=== PATIENT | female | born 1980 | race Caucasian/White ===

== ENCOUNTER 2018-01-06 11:11 | Emergency (ER) | payer OTHER ==
[2018-01-06] MEDS ORDERED: SODIUM CHLORIDE 0.9% 1,000 ML IV STA (11:32)
[2018-01-06] MEDS ORDERED: DIAZEPAM 5 MG/ML 2 ML INJ IVP STA (11:33)
--- NOTE | 2018-01-06 11:53 | ED ---
General Adult HPI - General Chief complaint: Weakness Stated complaint: Dizziness Time Seen by Provider: 01/06/18 11:22 Source: patient, RN notes reviewed Mode of arrival: ambulatory Limitations: no limitations - History of Present Illness Initial comments: This a 37-year-old female presents emergency Department with complaints of extremity paresthesias, feeling lightheaded. She states she woke up his morning noticed her right hand was numb. Patient states now that she's been up all over her extremities feel tingly and numb. She states she does not have a history of anxiety. She denies chest pain, shortness breath, focal weakness. She states that she felt lightheaded earlier but that has resolved. She denies headache, blurred vision, nausea this time. She denies any chance she has no extremity swelling denies any change in bowel habits denies any dysuria no hematuria. She states she only takes current probiotics and occasional Advil. Significant other in the room states that she is acting appropriate there is no confusion. Patient denies head injury. - Related Data Home Medications Medication Instructions Recorded Confirmed Ibuprofen [Advil] 600 - 800 mg PO Q6HR PRN 07/08/16 01/06/18 L.acidoph,Paracasei, B.lactis 1 cap PO HS 07/08/16 01/06/18 [Probiotic] Allergies Allergy/AdvReac Type Severity Reaction Status Date / Time No Known Allergies Allergy Verified 01/06/18 11:41 Review of Systems ROS Statement: Those systems with pertinent positive or pertinent negative responses have been documented in the HPI. ROS Other: All systems not noted in ROS Statement are negative. Past Medical History Past Medical History: No Reported History History of Any Multi-Drug Resistant Organisms: None Reported Past Surgical History: Tubal Ligation Additional Past Surgical History / Comment(s): leep proceedure Past Psychological History: No Psychological Hx Reported Smoking Status: Current every day smoker Past Alcohol Use History: Occasional Past Drug Use History: Marijuana General Exam Limitations: no limitations General appearance: alert, in no apparent distress Head exam: Present: atraumatic, normocephalic, normal inspection Eye exam: Present: normal appearance, PERRL, EOMI. Absent: scleral icterus, conjunctival injection, periorbital swelling ENT exam: Present: normal exam, normal oropharynx, mucous membranes moist, TM's normal bilaterally, normal external ear exam Neck exam: Present: normal inspection, full ROM. Absent: tenderness, meningismus, lymphadenopathy Respiratory exam: Present: normal lung sounds bilaterally. Absent: respiratory distress, wheezes, rales, rhonchi, stridor Cardiovascular Exam: Present: regular rate, normal rhythm, normal heart sounds. Absent: systolic murmur, diastolic murmur, rubs, gallop, clicks GI/Abdominal exam: Present: soft, normal bowel sounds. Absent: distended, tenderness, guarding, rebound, rigid Extremities exam: Present: normal inspection, full ROM, normal capillary refill , other (Extremity strength equal bilaterally of upper and lower extremities, pulses equal). Absent: tenderness, pedal edema, joint swelling, calf tenderness Back exam: Present: full ROM. Absent: tenderness, CVA tenderness (R), CVA tenderness (L) Neurological exam: Present: alert, oriented X3, CN II-XII intact, reflexes normal, other (Finger to nose intact bilaterally without shooting.). Absent: motor sensory deficit Skin exam: Present: warm, dry, intact, normal color. Absent: rash Course Vital Signs 01/06/18 01/06/18 11:14 13:15 Temperature 97.8 F Pulse Rate 82 77 Respiratory 16 18 Rate Blood Pressure 131/91 125/86 O2 Sat by Pulse 99 99 Oximetry EKG Findings - EKG Comments: EKG Findings:: EKG performed at 11.46 sinus rhythm with rate 87. pr 150 QRS 86 QT/QTC 382/459 Medical Decision Making - Medical Decision Making 37-year-old female presented for extremity paresthesias. Patient has a normal neuro exam there is no focal weakness. Patient states symptoms are slightly better after Valium. Patient's EKG, CT of the brain, lab work reviewed there is no acute abnormality. Patient repeat neuro exam which was normal. NIH 0 GCS 15. Patient will be discharged at this time return parameters were discussed. Patient and family questions were all answered. - Lab Data Result diagrams: 01/06/18 11:50 01/06/18 11:50 Lab Results 01/06/18 01/06/18 01/06/18 Range/Units 11:40 11:50 11:50 WBC 8.0 (3.8-10.6) k/uL RBC 4.21 (3.80-5.40) m/uL Hgb 14.1 (11.4-16.0) gm/dL Hct 41.5 (34.0-46.0) % MCV 98.5 (80.0-100.0) fL MCH 33.5 (25.0-35.0) pg MCHC 34.0 (31.0-37.0) g/dL RDW 12.2 (11.5-15.5) % Plt Count 265 (150-450) k/uL Neutrophils % 72 % Lymphocytes % 21 % Monocytes % 4 % Eosinophils % 2 % Basophils % 1 % Neutrophils # 5.7 (1.3-7.7) k/uL Lymphocytes # 1.7 (1.0-4.8) k/uL Monocytes # 0.3 (0-1.0) k/uL Eosinophils # 0.1 (0-0.7) k/uL Basophils # 0.1 (0-0.2) k/uL Sodium 142 (137-145) mmol/L Potassium 4.2 (3.5-5.1) mmol/L Chloride 108 H (98-107) mmol/L Carbon Dioxide 25 (22-30) mmol/L Anion Gap 9 mmol/L BUN 12 (7-17) mg/dL Creatinine 0.63 (0.52-1.04) mg/dL Est GFR (CKD-EPI)AfAm >90 (>60 ml/min/1.73 sqM) Est GFR (CKD-EPI)NonAf >90 (>60 ml/min/1.73 sqM) Glucose 122 H (74-99) mg/dL Calcium 9.3 (8.4-10.2) mg/dL Magnesium 2.1 (1.6-2.3) mg/dL Total Bilirubin 0.4 (0.2-1.3) mg/dL AST 26 (14-36) U/L ALT 26 (9-52) U/L Alkaline Phosphatase 40 (38-126) U/L Troponin I (0.000-0.034) ng/mL Total Protein 6.8 (6.3-8.2) g/dL Albumin 4.2 (3.5-5.0) g/dL Urine Color Light Yellow Urine Appearance Clear (Clear) Urine pH 5.0 (5.0-8.0) Ur Specific [place] 1.004 (1.001-1.035) Urine Protein Negative (Negative) Urine Glucose (UA) Negative (Negative) Urine Ketones Negative (Negative) Urine Blood Negative (Negative) Urine Nitrite Negative (Negative) Urine Bilirubin Negative (Negative) Urine Urobilinogen <2.0 (<2.0) mg/dL Ur Leukocyte Esterase Negative (Negative) 01/06/18 Range/Units 11:50 WBC (3.8-10.6) k/uL RBC (3.80-5.40) m/uL Hgb (11.4-16.0) gm/dL Hct (34.0-46.0) % MCV (80.0-100.0) fL MCH (25.0-35.0) pg MCHC (31.0-37.0) g/dL RDW (11.5-15.5) % Plt Count (150-450) k/uL Neutrophils % % Lymphocytes % % Monocytes % % Eosinophils % % Basophils % % Neutrophils # (1.3-7.7) k/uL Lymphocytes # (1.0-4.8) k/uL Monocytes # (0-1.0) k/uL Eosinophils # (0-0.7) k/uL Basophils # (0-0.2) k/uL Sodium (137-145) mmol/L Potassium (3.5-5.1) mmol/L Chloride (98-107) mmol/L Carbon Dioxide (22-30) mmol/L Anion Gap mmol/L BUN (7-17) mg/dL Creatinine (0.52-1.04) mg/dL Est GFR (CKD-EPI)AfAm (>60 ml/min/1.73 sqM) Est GFR (CKD-EPI)NonAf (>60 ml/min/1.73 sqM) Glucose (74-99) mg/dL Calcium (8.4-10.2) mg/dL Magnesium (1.6-2.3) mg/dL Total Bilirubin (0.2-1.3) mg/dL AST (14-36) U/L ALT (9-52) U/L Alkaline Phosphatase (38-126) U/L Troponin I <0.012 (0.000-0.034) ng/mL Total Protein (6.3-8.2) g/dL Albumin (3.5-5.0) g/dL Urine Color Urine Appearance (Clear) Urine pH (5.0-8.0) Ur Specific [place] (1.001-1.035) Urine Protein (Negative) Urine Glucose (UA) (Negative) Urine Ketones (Negative) Urine Blood (Negative) Urine Nitrite (Negative) Urine Bilirubin (Negative) Urine Urobilinogen (<2.0) mg/dL Ur Leukocyte Esterase (Negative) Disposition Clinical Impression: Paresthesia of both hands, Paresthesia of both feet Disposition: HOME SELF-CARE Condition: Stable Instructions: Paresthesia (ED) Additional Instructions: Please return to the Emergency Department if symptoms worsen or any other concerns. Referrals: Ayleen Benoit MD [Primary Care Provider] - 1-2 days Time of Disposition: 14:16
[2018-01-06 12:11] LABS: Basophils # (A) 0.1 k/uL (0-0.2); Basophils % (A) 1 %; Eosinophils # (A) 0.1 k/uL (0-0.7); Eosinophils % (A) 2 %; HCT 41.5 % (34.0-46.0); HGB 14.1 gm/dL (11.4-16.0); Lymphocytes # (A) 1.7 k/uL (1.0-4.8); Lymphocytes % (A) 21 %; MCH 33.5 pg (25.0-35.0); MCV 98.5 fL (80.0-100.0); Mean Platelet Volume 7.1; Monocytes # (A) 0.3 k/uL (0-1.0); Monocytes % (A) 4 %; Neutrophils # (A) 5.7 k/uL (1.3-7.7); Neutrophils % (A) 72 %; Platelet Count 265 k/uL (150-450); RBC 4.21 m/uL (3.80-5.40); RDW 12.2 % (11.5-15.5)
[2018-01-06 12:19] LABS: Appearance,Urine Clear (Clear); Bilirubin,Urine Negative (Negative); Blood,Urine Negative (Negative); Color,Urine Light Yellow; Glucose,Urine (UA) Negative (Negative); Ketones,Urine Negative (Negative); Leukocyte Esterase,Urine Negative (Negative); Nitrite,Urine Negative (Negative); Protein,Urine Negative (Negative); Specific Gravity,Urine 1.004 (1.001-1.035); Urobilinogen,Urine <2.0 mg/dL (<2.0)
[2018-01-06 12:32] LABS: ALT 26 U/L (9-52); AST 26 U/L (14-36); Albumin 4.2 g/dL (3.5-5.0); Alkaline Phosphatase 40 U/L (38-126); Anion Gap 9 mmol/L; Blood Urea Nitrogen 12 mg/dL (7-17); Calcium 9.3 mg/dL (8.4-10.2); Carbon Dioxide 25 mmol/L (22-30); Chloride 108 mmol/L (98-107); Glucose 122 mg/dL (74-99); Magnesium 2.1 mg/dL (1.6-2.3); Potassium 4.2 mmol/L (3.5-5.1); Sodium 142 mmol/L (137-145); Total Bilirubin 0.4 mg/dL (0.2-1.3); Total Protein 6.8 g/dL (6.3-8.2)
--- NOTE | 2018-01-06 12:35 | CT ---
EXAMINATION TYPE: CT brain wo con DATE OF EXAM: 01/06/2018 COMPARISON: NONE HISTORY: 37-year-old female Slurred speech, dizziness TECHNIQUE: Examination was done in axial plane without intravenous contrast. Coronal and sagittal r econstructions performed. CT DLP: 1082 mGycm Automated exposure control for dose reduction was used. FINDINGS: There is no evidence of acute intracranial hemorrhage, acute ischemic changes, mass, mass-effect, or extra-axial fluid collection. There is no effacement of cerebral sulci or basal subarachnoid cister ns. There is no hydrocephalus. There is no midline shift. Lux-white matter distinction is preserv ed. Paranasal sinuses and mastoid air cells are well pneumatized. Orbits and globes are intact. IMPRESSION: No acute intracranial abnormality seen.
[2018-01-06 13:15] VITALS: RESP 18
[2018-01-06 14:44] VITALS: BP 122/74; PULSE 75; TEMP 98.1
== END 2018-01-06 14:50 | disposition home or self-care (01) ==
LOC: EC 11:11
DX: R20.2 Paresthesia of skin (principal); F17.200 Nicotine dependence, unspecified, uncomplicated; Z79.899 Other long term (current) drug therapy
CPT/HCPCS: 99285; 96374; 96361 ×2; 36415; 93005; 80053; 83735; 84484; 85025; 81003; 70450; J3360

== ENCOUNTER → 2018-01-24 | Outpatient (CLI) | payer OTHER ==
--- NOTE | 2018-01-24 07:16 | MR ---
EXAMINATION TYPE: MR brain/cspine wo DATE OF EXAM: 01/24/2018 COMPARISON: CT brain 01/06/2018 HISTORY: Syncope and collapse / Cervicalgia CONTRAST: Performed utilizing 0 mL intravenous Gadavist gadolinium contrast. TECHNIQUE: Multiplanar, multiecho imaging on a 3.0 Coni magnet is performed through the brain. Stud y is performed within 24 hours of arrival to the hospital. The craniovertebral junction is normal. The pituitary is normal. Diffusion-weighted imaging is performed. No abnormal hyperintensity is present to suggest an acute i ntracranial infarct or acute ischemic change. There are a few scattered punctate hyperintensities in subcortical white matter numbering approximate ly 14. This greater than expected for patient of this age. Differential could include microvascular i schemic change, multiple sclerosis, vasculitis, migraine headaches, Lyme disease. Ventricles and sulci are appropriate for the patient age. IMPRESSIONS: 1. Punctate subcortical white matter changes which are nonspecific. Differential diagnosis could incl ude microvascular ischemic change and multiple sclerosis among other etiologies. EXAMINATION TYPE: MR brain/cspine wo DATE OF EXAM: 01/24/2018 COMPARISON: NONE HISTORY: Syncope and collapse / Cervicalgia CONTRAST: Performed utilizing 0 mL intravenous Gadavist gadolinium contrast. TECHNIQUE: Multiplanar multiecho imaging on a 3.0 Coni magnet is performed through the cervical spin e. FINDINGS: The craniovertebral junction is normal. Vertebral body alignment is normal. C7-T1: No focal disc herniation or significant disc bulge is evident. No spinal canal stenosis or n eural foraminal stenosis is present. C6-7: No focal disc herniation or significant disc bulge is evident. No spinal canal stenosis or dylon ral foraminal stenosis is present. C5-6: No focal disc herniation or significant disc bulge is evident. No spinal canal stenosis or dylon ral foraminal stenosis is present. C4-5: No focal disc herniation or significant disc bulge is evident. No spinal canal stenosis or dylon ral foraminal stenosis is present. C3-4: No focal disc herniation or significant disc bulge is evident. No spinal canal stenosis or dylon ral foraminal stenosis is present. C2-3: No focal disc herniation or significant disc bulge is evident. No spinal canal stenosis or dylon ral foraminal stenosis is present. Signal through the spinal cord is normal. No abnormal hyperintensities on T2-weighted sequences are e vident. IMPRESSIONS: 1. Normal MRI cervical spine
== END | disposition home or self-care (01) ==
LOC: RADMRIMAIN 06:04
PROVIDERS: ATTEND Family Medicine
DX: R55 Syncope and collapse (principal); R51 Headache; R20.2 Paresthesia of skin; M54.2 Cervicalgia
CPT/HCPCS: 70551; 72141

== ENCOUNTER 2021-01-05 09:24 | Emergency (ER) | payer OTHER ==
[2021-01-05 09:29] VITALS: RESP 18
--- NOTE | 2021-01-05 10:29 | ED ---
General Adult HPI - General Chief complaint: GI Bleed Stated complaint: Abd Pain Time Seen by Provider: 01/05/21 09:39 Source: patient Mode of arrival: ambulatory Limitations: no limitations - History of Present Illness Initial comments: 40-year-old female presents to the emergency department with a chief complaint of rectal bleeding. Patient reports about 3 weeks ago she was diagnosed with Covid and has had some abdominal irregularities, particularly epigastric abdominal pain that seems to be, and going. However, states the pain has been somewhat constant for the past 3 days. She also reports having some nausea but no vomiting. States earlier today she had a regular bowel movement which was followed by a second, bloody stool. It was bright red blood. She does have history of hemorrhoids but states she does not have one at the moment. She also recently started her menstrual period. She denies any urinary symptoms at this time. She denies any fevers or chills. Denies history of abdominal surgeries. She denies chest pain or shortness of breath. She denies hematuria or melena. - Related Data Home Medications Medication Instructions Recorded Confirmed L.acidoph,Paracasei, B.lactis 1 cap PO HS 07/08/16 01/05/21 [Probiotic] Ascorbic Acid [Vitamin C] 500 mg PO DAILY 01/05/21 01/05/21 Biotin 5 mg PO DAILY 01/05/21 01/05/21 Zinc 50 mg PO DAILY 01/05/21 01/05/21 Previous Rx's Medication Instructions Recorded Ondansetron Odt [Zofran Odt] 4 mg PO Q8HR PRN #10 tab 01/05/21 Allergies Allergy/AdvReac Type Severity Reaction Status Date / Time No Known Allergies Allergy Verified 01/05/21 10:38 Review of Systems ROS Statement: Those systems with pertinent positive or pertinent negative responses have been documented in the HPI. ROS Other: All systems not noted in ROS Statement are negative. Past Medical History Past Medical History: No Reported History History of Any Multi-Drug Resistant Organisms: None Reported Past Surgical History: Tubal Ligation Additional Past Surgical History / Comment(s): leep proceedure Past Psychological History: No Psychological Hx Reported Smoking Status: Current every day smoker Past Alcohol Use History: Occasional Past Drug Use History: Marijuana General Exam Limitations: no limitations General appearance: alert, in no apparent distress Head exam: Present: atraumatic, normocephalic, normal inspection Eye exam: Present: normal appearance, PERRL, EOMI Pupils: Present: normal accommodation ENT exam: Present: normal exam, normal oropharynx, mucous membranes moist Neck exam: Present: normal inspection, full ROM. Absent: tenderness, lymphadenopathy Respiratory exam: Present: normal lung sounds bilaterally. Absent: respiratory distress, wheezes, rales, rhonchi, stridor, chest wall tenderness, accessory muscle use Cardiovascular Exam: Present: regular rate, normal rhythm, normal heart sounds GI/Abdominal exam: Present: soft, tenderness (Epigastric abdominal tenderness). Absent: distended, guarding, rebound, rigid Rectal exam: Present: normal inspection. Absent: normal rectal tone, decreased rectal tone, heme (-) stool, heme (+) stool, black stool, bloody stool, fecal impaction, hemorrhoids Extremities exam: Present: normal inspection, full ROM, normal capillary refill. Absent: tenderness, pedal edema, joint swelling Back exam: Present: normal inspection, full ROM. Absent: tenderness, CVA tenderness (R), CVA tenderness (L) Neurological exam: Present: alert, oriented X3, normal gait Psychiatric exam: Present: normal affect, normal mood Skin exam: Present: warm, dry, intact, normal color Course Vital Signs 01/05/21 01/05/21 09:26 12:58 Temperature 97.8 F 97.3 F L Pulse Rate 87 80 Respiratory 18 18 Rate Blood Pressure 146/105 139/88 O2 Sat by Pulse 99 99 Oximetry Medical Decision Making - Medical Decision Making 40-year-old male presents to emergency Department with a chief complaint of rectal bleeding. Rectal examination reveals no signs of hemorrhoids or fissures. Occult stool was negative. CBC CMP unremarkable. Coags within normal limits. UA shows small amount of blood but the patient is currently on her menstrual period. CT abdomen and pelvis reveals enteritis likely causing the patient's symptoms. Patient advised to follow a clear liquid diet for the next several days. Strict return parameters were thoroughly discussed the patient was icing agreeable. Case discussed with Dr. Hairston - Lab Data Result diagrams: 01/05/21 10:05 01/05/21 10:05 Lab Results 01/05/21 01/05/21 01/05/21 Range/Units 10:05 10:05 10:05 WBC 9.4 (3.8-10.6) k/uL RBC 4.30 (3.80-5.40) m/uL Hgb 15.0 (11.4-16.0) gm/dL Hct 42.9 (34.0-46.0) % MCV 99.8 (80.0-100.0) fL MCH 34.8 (25.0-35.0) pg MCHC 34.9 (31.0-37.0) g/dL RDW 11.6 (11.5-15.5) % Plt Count 226 (150-450) k/uL MPV 7.6 Neutrophils % 73 % Lymphocytes % 19 % Monocytes % 5 % Eosinophils % 2 % Basophils % 0 % Neutrophils # 6.8 (1.3-7.7) k/uL Lymphocytes # 1.8 (1.0-4.8) k/uL Monocytes # 0.4 (0-1.0) k/uL Eosinophils # 0.2 (0-0.7) k/uL Basophils # 0.0 (0-0.2) k/uL PT 10.9 (9.0-12.0) sec INR 1.0 (<1.2) APTT 24.4 (22.0-30.0) sec Sodium (137-145) mmol/L Potassium (3.5-5.1) mmol/L Chloride (98-107) mmol/L Carbon Dioxide (22-30) mmol/L Anion Gap mmol/L BUN (7-17) mg/dL Creatinine (0.52-1.04) mg/dL Est GFR (CKD-EPI)AfAm (>60 ml/min/1.73 sqM) Est GFR (CKD-EPI)NonAf (>60 ml/min/1.73 sqM) Glucose (74-99) mg/dL Calcium (8.4-10.2) mg/dL Total Bilirubin (0.2-1.3) mg/dL AST (14-36) U/L ALT (4-34) U/L Alkaline Phosphatase (38-126) U/L Total Protein (6.3-8.2) g/dL Albumin (3.5-5.0) g/dL Lipase (23-300) U/L Urine Color Urine Appearance (Clear) Urine pH (5.0-8.0) Ur Specific [place] (1.001-1.035) Urine Protein (Negative) Urine Glucose (UA) (Negative) Urine Ketones (Negative) Urine Blood (Negative) Urine Nitrite (Negative) Urine Bilirubin (Negative) Urine Urobilinogen (<2.0) mg/dL Ur Leukocyte Esterase (Negative) Urine RBC (0-5) /hpf Urine WBC (0-5) /hpf Ur Squamous Epith Cells (0-4) /hpf Urine HCG, Qual Not Detected (Not Detectd) Stool Occult Blood (Negative) 01/05/21 01/05/21 01/05/21 Range/Units 10:05 10:05 11:28 WBC (3.8-10.6) k/uL RBC (3.80-5.40) m/uL Hgb (11.4-16.0) gm/dL Hct (34.0-46.0) % MCV (80.0-100.0) fL MCH (25.0-35.0) pg MCHC (31.0-37.0) g/dL RDW (11.5-15.5) % Plt Count (150-450) k/uL MPV Neutrophils % % Lymphocytes % % Monocytes % % Eosinophils % % Basophils % % Neutrophils # (1.3-7.7) k/uL Lymphocytes # (1.0-4.8) k/uL Monocytes # (0-1.0) k/uL Eosinophils # (0-0.7) k/uL Basophils # (0-0.2) k/uL PT (9.0-12.0) sec INR (<1.2) APTT (22.0-30.0) sec Sodium 138 (137-145) mmol/L Potassium 4.4 (3.5-5.1) mmol/L Chloride 107 (98-107) mmol/L Carbon Dioxide 23 (22-30) mmol/L Anion Gap 8 mmol/L BUN 10 (7-17) mg/dL Creatinine 0.60 (0.52-1.04) mg/dL Est GFR (CKD-EPI)AfAm >90 (>60 ml/min/1.73 sqM) Est GFR (CKD-EPI)NonAf >90 (>60 ml/min/1.73 sqM) Glucose 95 (74-99) mg/dL Calcium 9.2 (8.4-10.2) mg/dL Total Bilirubin 0.5 (0.2-1.3) mg/dL AST 22 (14-36) U/L ALT 15 (4-34) U/L Alkaline Phosphatase 44 (38-126) U/L Total Protein 6.9 (6.3-8.2) g/dL Albumin 4.3 (3.5-5.0) g/dL Lipase 128 (23-300) U/L Urine Color Light Yellow Urine Appearance Clear (Clear) Urine pH 5.0 (5.0-8.0) Ur Specific [place] 1.005 (1.001-1.035) Urine Protein Negative (Negative) Urine Glucose (UA) Negative (Negative) Urine Ketones Negative (Negative) Urine Blood Moderate H (Negative) Urine Nitrite Negative (Negative) Urine Bilirubin Negative (Negative) Urine Urobilinogen <2.0 (<2.0) mg/dL Ur Leukocyte Esterase Negative (Negative) Urine RBC 5 (0-5) /hpf Urine WBC <1 (0-5) /hpf Ur Squamous Epith Cells <1 (0-4) /hpf Urine HCG, Qual (Not Detectd) Stool Occult Blood Negative (Negative) Disposition Clinical Impression: Enteritis, Abdominal pain Disposition: HOME SELF-CARE Condition: Stable Instructions (If sedation given, give patient instructions): Clear Liquid Diet (ED), Enteritis (ED) Additional Instructions: Follow-up with the primary care physician. Return to emergency department if symptoms worsen. Prescriptions: Ondansetron Odt [Zofran Odt] 4 mg PO Q8HR PRN #10 tab PRN Reason: Nausea Is patient prescribed a controlled substance at d/c from ED?: No Referrals: Ayleen Benoit MD [Primary Care Provider] - 1-2 days Time of Disposition: 12:41
[2021-01-05 10:36] LABS: Basophils % (A) 0 %; Eosinophils # (A) 0.2 k/uL (0-0.7); Eosinophils % (A) 2 %; HCT 42.9 % (34.0-46.0); Lymphocytes # (A) 1.8 k/uL (1.0-4.8); Lymphocytes % (A) 19 %; MCH 34.8 pg (25.0-35.0); MCHC 34.9 g/dL (31.0-37.0); MCV 99.8 fL (80.0-100.0); Mean Platelet Volume 7.6; Monocytes # (A) 0.4 k/uL (0-1.0); Monocytes % (A) 5 %; Neutrophils # (A) 6.8 k/uL (1.3-7.7); Neutrophils % (A) 73 %; Platelet Count 226 k/uL (150-450); RDW 11.6 % (11.5-15.5); WBC 9.4 k/uL (3.8-10.6)
[2021-01-05 11:04] LABS: ALT 15 U/L (4-34); AST 22 U/L (14-36); African American GFR (CKD) >90 (>60 ml/min/1.73 sqM); Albumin 4.3 g/dL (3.5-5.0); Alkaline Phosphatase 44 U/L (38-126); Anion Gap 8 mmol/L; Blood Urea Nitrogen 10 mg/dL (7-17); Calcium 9.2 mg/dL (8.4-10.2); Carbon Dioxide 23 mmol/L (22-30); Chloride 107 mmol/L (98-107); Glucose 95 mg/dL (74-99); Lipase 128 U/L (23-300); Non-African American GFR(CKD) >90 (>60 ml/min/1.73 sqM); Potassium 4.4 mmol/L (3.5-5.1); Sodium 138 mmol/L (137-145); Total Bilirubin 0.5 mg/dL (0.2-1.3); Total Protein 6.9 g/dL (6.3-8.2)
[2021-01-05] MEDS ORDERED: ONDANSETRON 4 MG/2 ML VIAL IVP STA (11:21)
[2021-01-05] MEDS ORDERED: SODIUM CHLORIDE 0.9% 1,000 ML IV STA (11:21)
[2021-01-05] MEDS ORDERED: MORPHINE SULFATE 4 MG/ML SYRINGE IVP STA (11:22)
[2021-01-05 11:24] LABS: Appearance,Urine Clear (Clear); Bilirubin,Urine Negative (Negative); Blood,Urine Moderate (Negative); Color,Urine Light Yellow; Glucose,Urine (UA) Negative (Negative); Ketones,Urine Negative (Negative); Leukocyte Esterase,Urine Negative (Negative); Nitrite,Urine Negative (Negative); Protein,Urine Negative (Negative); RBC,Urine 5 /hpf (0-5); Squamous Epithelial Cell,Urine <1 /hpf (0-4); Urobilinogen,Urine <2.0 mg/dL (<2.0); WBC,Urine <1 /hpf (0-5)
[2021-01-05 11:33] LABS: Partial Thromboplastin Time 24.4 sec (22.0-30.0); Prothrombin Time 10.9 sec (9.0-12.0)
[2021-01-05 12:15] LABS: Specific Gravity,Urine 1.005 (1.001-1.035)
--- NOTE | 2021-01-05 12:37 | CT ---
EXAMINATION TYPE: CT abdomen pelvis w con DATE OF EXAM: 01/05/2021 COMPARISON: None HISTORY: epigastric pain, nausea CT DLP: 503 mGycm CONTRAST: CT scan of the abdomen and pelvis is performed without Oral Contrast and with IV Contrast, patient in jected with 100 mL of Isovue 300. FINDINGS: LUNG BASES-: No visible nodule. No infiltrate. LIVER/GB: No calcified gallstones. No space occupying hepatic lesion. Biliary tree is of normal ca liber. PANCREAS: No inflammation. No distinct mass. SPLEEN: No splenic enlargement. No lesion seen. ADRENALS: No nodule. No thickening. KIDNEYS/BLADDER: No hydronephrosis. No nephrolithiasis. No distinct renal mass. Urinary bladder g rossly unremarkable. BOWEL: There is mild distention of the appendix up to 7 mm without surrounding wall thickening or inf lammatory change. Jejunal wall thickening may reflect enteritis. The colon is of normal caliber. No e vidence for free air or abscess. GENITAL ORGANS: No gross abnormality. LYMPH NODES: No greater than 1cm abdominal or pelvic lymph nodes are appreciated. AORTA: No significant abnormality. OSSEOUS STRUCTURES: No significant abnormality is seen. OTHER: No significant additional abnormality is seen. IMPRESSION: 1. Jejunal wall thickening may reflect enteritis. 2.There is mild distention of the appendix up to 7 mm without surrounding wall thickening or inflamma tory change.
[2021-01-05 12:59] VITALS: BP 139/88; PULSE 80; TEMP 97.3
== END 2021-01-05 12:59 | disposition home or self-care (01) ==
LOC: EC 09:24
DX: K52.9 Noninfective gastroenteritis and colitis, unspecified (principal); F17.200 Nicotine dependence, unspecified, uncomplicated
CPT/HCPCS: 36415; 74177; 80053; 81001; 81025; 82272; 83690; 85025; 85610; 85730; 96361; 96374; 96375; 99284

== ENCOUNTER 2021-03-06 08:49 | Day surgery (SDC) | payer OTHER ==
[2021-03-04 17:14] VITALS: BMI 24.0
[~2021-03-06 08:49] MED LIST: LACTATED RINGERS 1,000 ML IV SCH
[2021-03-06 09:09] VITALS: RESP 16; TEMP 98.8
[2021-03-06] MEDS ORDERED: LIDOCAINE 1% (10MG/ML) FOR IV START INTRADERMA ONE (09:15)
[2021-03-06] MEDS ORDERED: LIDOCAINE 1% INJ 10MG/ML (20 ML MDV) ONE (09:47)
[2021-03-06] MEDS ORDERED: PROPOFOL 10 MG/ML 20 ML VIAL IV ONE (09:47)
--- NOTE | 2021-03-06 10:06 | P.PCN ---
Date of Procedure: 03/06/21 Procedure(s) Performed: Brief history: Patient is a pleasant 40-year-old white male scheduled for an elective upper endoscopy as well as colonoscopy as a part of evaluation of chronic epigastric pain/intermittent nausea, rectal bleeding and diarrhea for the last 6 months duration Procedure performed: Esophagogastroduodenoscopy with biopsy Colonoscopy with biopsy Preoperative diagnosis: Epigastric pain/nausea Diarrhea and rectal bleeding Anesthesia: [facility] [place] Procedure: After informed consent was obtained from the patient was brought into the endoscopy unit and IV sedation was administered by anesthesia under continuous monitoring. Initially upper endoscopy was done. The Olympus GF 160 video endoscope was inserted inserted into the mouth and esophagus intubated without any difficulty and was gradually advanced into the stomach and duodenum and carefully examined. The bulb and second part of the duodenum appeared normal. Biopsies were done from the duodenum to rule out celiac disease. The scope was then withdrawn into the stomach adequately insufflated with air and upon careful examination the antrum revealed severe gastritis and biopsies were done from this area. The body, cardia and fundus appeared normal. The scope was then withdrawn into the esophagus. The GE junction was located at 40 cm to the incisors. It appeared regular with no erythema erosions or ulcerations. Rest of the esophagus appeared normal. Patient tolerated the procedure well. At this time the patient continued to remain sedation. Initial digital rectal examination was normal. Olympus CF 160 video colonoscope was then inserted into the rectum and gradually advanced to the cecum without any difficulty. Careful examination was performed as the scope was gradually being withdrawn. The prep was excellent. The cecum appeared normal. The ascending colon there was a 3 mm sessile polyp that was removed by cold biopsy. Rest of the, ascending colon, transverse colon, descending colon, sigmoid colon and rectum appeared normal. Biopsies were done from ascending and descending colon to rule out microscopic/collagenous colitis Retroflexion was performed in the rectum and no lesions were noted. Patient tolerated the procedure well. Impression: 1. Upper endoscopy revealed severe antral gastritis but no evidence of esophagitis or peptic ulcer disease 2. Colonoscopy revealed a 3 mm ascending colon polyp status post removal by cold biopsy and rest of the colon appeared normal. Recommendations: Findings of this examination were discussed with the patient as well as her family. She was advised to follow with the biopsy results. She'll be seen in office in 2 weeks.
[2021-03-06 10:35] VITALS: BP 131/83; PULSE 69
== END 2021-03-06 10:48 | disposition home or self-care (01) ==
LOC: ORWHC2ENDO 08:49
PROVIDERS: ATTEND Internal Medicine Gastroenterology
DX: R10.13 Epigastric pain (principal); F17.210 Nicotine dependence, cigarettes, uncomplicated; K21.9 Gastro-esophageal reflux disease without esophagitis; Z79.899 Other long term (current) drug therapy
CPT/HCPCS: 88305; 45380; 43239; J2001; J2704

== ENCOUNTER → 2021-10-21 | Outpatient (CLI) | payer OTHER ==
--- NOTE | 2021-10-21 16:07 | US ---
EXAMINATION TYPE: US pelvic complete DATE OF EXAM: 10/21/2021 COMPARISON: NONE CLINICAL HISTORY: N94.6 DYSMENORRHEA,N92.4 METORRHAGIA. Heavy, long and painful menstruation. TECHNIQUE: Transabdominal (TA). Transabdominal sonographic images of the pelvis were acquired. G 2 P 2 Date of LMP: 10/16/2021 EXAM MEASUREMENTS: Uterus: 7.9 x 5.6 x 3.8 cm Endometrial Stripe: 0.5 cm Right Ovary: 3.3 x 2.2 x 1.8 cm Left Ovary: 3.2 x 1.9 x2.6 cm 1. Uterus: Anteverted wnl 2. Endometrium: wnl 3. Right Ovary: wnl 4. Left Ovary: wnl 5. Bilateral Adnexa: wnl 6. Posterior cul-de-sac: wnl Urinary bladder is sonolucent. Posterior wall is normal. Follicles bilateral ovaries are identified. IMPRESSION: 1. Normal pelvic ultrasound
== END | disposition home or self-care (01) ==
LOC: RADUSWWP 15:31
PROVIDERS: ATTEND Obstetrics & Gynecology
DX: N94.6 Dysmenorrhea, unspecified (principal); N92.4 Excessive bleeding in the premenopausal period
CPT/HCPCS: 76856

== ENCOUNTER → 2021-10-27 | Outpatient (CLI) | payer OTHER ==
--- NOTE | 2021-10-28 10:00 | MM ---
Reason for exam: screening (asymptomatic). Baseline mammogram. History: Took hormonal contraceptives for 20 years. Physical Findings: Nurse did not find any significant physical abnormalities on exam. MG Screening Mammo w CAD Bilateral CC and MLO view(s) were taken. The breast tissue is heterogeneously dense. This may lower the sensitivity of mammography. Nodular density upper outer left breast zone B. ASSESSMENT: Incomplete: need additional imaging evaluation, BI-RAD 0 RECOMMENDATION: Special view mammogram and ultrasound of the left breast. [facility] will attempt to contact patient to return for supplemental views and ultrasound.
== END | disposition home or self-care (01) ==
LOC: RADMAMWWP 14:14
PROVIDERS: ATTEND Obstetrics & Gynecology
DX: Z12.31 Encounter for screening mammogram for malignant neoplasm of breast (principal)
CPT/HCPCS: 77067

== ENCOUNTER → 2021-11-10 | Outpatient (CLI) | payer OTHER ==
--- NOTE | 2021-11-10 14:49 | MM ---
Reason for exam: additional evaluation requested from abnormal screening. Last mammogram was performed less than 1 month ago. History: Took hormonal contraceptives for 20 years. Physical Findings: Nurse did not find any significant physical abnormalities on exam. MG Work Up Mamm w CAD LT Spot compression CC, spot compression MLO, and LM view(s) were taken of the left breast. Prior study comparison: October 27, 2021, bilateral MG screening mammo w CAD. Asymmetric breast tissue persists upper outer left breast. These results were verbally communicated with the patient and result sheet given to the patient on 11/10/21. ASSESSMENT: Incomplete: need additional imaging evaluation, BI-RAD 0 RECOMMENDATION: Ultrasound of the left breast.
--- NOTE | 2021-11-10 14:50 | USB ---
Reason for exam: additional evaluation requested from abnormal screening. History: Took hormonal contraceptives for 20 years. US Breast Workup Limited LT Left limited breast ultrasound including focal area of concern, retroareolar and axilla demonstrates a 0.3 x 0.2 x 0.2cm oval, cystic lesion at 12 o'clock, a 0.5 x 0.5 x 0.3cm oval, cystic lesion at 1 o'clock and a 0.5 x 0.6 x 0.3cm oval, cystic lesion at 2 o'clock. These results were verbally communicated with the patient and result sheet given to the patient on 11/10/21. ASSESSMENT: Benign, BI-RAD 2 RECOMMENDATION: Return to routine screening mammogram schedule for both breasts.
== END | disposition home or self-care (01) ==
LOC: RADMAMWWP 13:41
PROVIDERS: ATTEND Obstetrics & Gynecology
DX: R92.8 Other abnormal and inconclusive findings on diagnostic imaging of breast (principal)
CPT/HCPCS: 77065

== ENCOUNTER 2021-12-04 06:19 | Day surgery (SDC) | payer OTHER ==
[2021-12-01 15:13] VITALS: BMI 23.6
--- NOTE | 2021-12-03 18:40 | P.HPOB ---
History of Present Illness H&P Date: 12/03/21 Chief Complaint: Menorrhagia with regular cycle, dysmenorrhea This is a 41-year-old female 2 para 2 who presents for dilation and curettage with hysteroscopy and NovaSure endometrial ablation secondary to menorrhagia with regular cycle. Her menses are occurring every 28-30 days lasting at least 8 days with the first day and a half very heavy and at least 3 days of severe cramping. This has been worsening over the last 3-4 years and she is unable to take ibuprofen due to stomach issues. She did have a pelvic ultrasound that showed a uterus measuring 7.9 x 5.6 x 3.8 cm with an endometrial stripe thickness of 0.5 cm. Normal ovaries were noted. The patient has had a tubal ligation and would like definitive surgical treatment to control her bleeding issues. Review of Systems Constitutional: Reports night sweats (Occasional), Denies chills, Denies fever Eyes: denies blurred vision, denies pain Ears, nose, mouth and throat: Denies headache, Denies sore throat Cardiovascular: Denies chest pain, Denies shortness of breath Respiratory: Denies cough Gastrointestinal: Reports bloating, Reports constipation, Reports heartburn Genitourinary: Reports dysmenorrhea, Reports menorrhagia, Reports urinary frequency Menstruation: Reports menses 8 or > days, Reports period heavy Musculoskeletal: Reports low back pain Integumentary: Denies pruritus, Denies rash Neurological: Denies numbness, Denies weakness Psychiatric: Reports anxiety Endocrine: Reports flushing (Occasional) Past Medical History Past Medical History: No Reported History, GERD/Reflux Additional Past Medical History / Comment(s): History of gastritis History of Any Multi-Drug Resistant Organisms: None Reported Past Surgical History: Tubal Ligation Additional Past Surgical History / Comment(s): LEEP procedure. Past Anesthesia/Blood Transfusion Reactions: No Reported Reaction Past Psychological History: Anxiety Smoking Status: Former smoker Past Alcohol Use History: Occasional Additional Past Alcohol Use History / Comment(s): Smoked on and off from 2000, quit 08/26/21. Smoked 1 PPD. Past Drug Use History: Marijuana Additional Drug Use History / Comment(s): Marijuana 1-2 times per week. - Past Family History Mother Family Medical History: No Reported History Medications and Allergies Home Medications Medication Instructions Recorded Confirmed Type L.acidoph,Paracasei, B.lactis 1 cap PO DAILY 07/08/16 12/01/21 History [Probiotic] Multivit with Calcium,Iron,Min 1 each PO DAILY 12/01/21 12/01/21 History [Women's Multivitamin] buPROPion [Wellbutrin] 75 mg PO QAM 12/01/21 12/01/21 History Allergies Allergy/AdvReac Type Severity Reaction Status Date / Time No Known Allergies Allergy Verified 12/01/21 15:00 Exam Osteopathic Statement: *. No significant issues noted on an osteopathic structural exam other than those noted in the History and Physical/Consult. HEENT: Within normal limits Heart: Regular rate and rhythm Lungs: Clear to auscultation bilaterally Abdomen: Soft, nontender Pelvic exam: Uterus is retroverted, nontender, with no adnexal masses or tenderness palpated Extremities: Negative Homans Assessment and Plan (1) Menorrhagia with regular cycle Status: Acute Code(s): N92.0 - EXCESSIVE AND FREQUENT MENSTRUATION WITH REGULAR CYCLE SNOMED Code(s): 088446539 Plan: Proceed with dilation and curettage with hysteroscopy and NovaSure endometrial ablation. I have discussed the risks, benefits, and alternative therapies for the above- mentioned procedure and for both sedation/anesthesia as well as necessary blood products administration, if indicated, as they pertain to this patient. The patient has indicated her understanding and acceptance of the risks and procedures discussed.
[~2021-12-04 06:19] MED LIST changes: -LACTATED RINGERS 1,000 ML IV SCH; +Pre Op ABX Message 1 EACH MISC MISCELLANE ONE
[2021-12-04] MEDS ORDERED: ONDANSETRON 4 MG/2 ML VIAL IVP ONE (06:33)
[2021-12-04] MEDS ORDERED: DEXAMETHASONE SOD PHOSPHATE 4 MG/ML 1 ML VIAL IV ONE (06:33)
[2021-12-04] MEDS ORDERED: MIDAZOLAM 2 MG/2 ML VIAL IV PRN (06:33)
[2021-12-04] MEDS ORDERED: SCOPOLAMINE 1.5MG/72HR PATCH TRANSDERM ONE (06:33)
[2021-12-04] MEDS ORDERED: LACTATED RINGERS 1,000 ML IV SCH (06:33)
[2021-12-04] MEDS ORDERED: MIDAZOLAM 2 MG/2 ML VIAL ONE (07:25)
[2021-12-04] MEDS ORDERED: KETOROLAC 15 MG/ML 1 ML VIAL ONE (07:25)
[2021-12-04] MEDS ORDERED: LIDOCAINE 1% INJ 10MG/ML (20 ML MDV) ONE (07:25)
[2021-12-04] MEDS ORDERED: fentaNYL (PF) 50 MCG/ML 2 ML AMP ONE (07:25)
[2021-12-04] MEDS ORDERED: PROPOFOL 10 MG/ML 20 ML VIAL IV ONE (07:25)
--- NOTE | 2021-12-04 08:01 | P.OP ---
Date of Procedure: 12/04/21 Preoperative Diagnosis: Menorrhagia with regular cycle Postoperative Diagnosis: Same Procedure(s) Performed: Dilation and curettage with hysteroscopy and NovaSure endometrial ablation Anesthesia: other (Mask general) Surgeon: Kaylee Regalado Estimated Blood Loss (ml): 5 Pathology: other (Endometrial curettings) Condition: stable Disposition: floor Indications for Procedure: This is a 41-year-old female 2 para 2 who presents for dilation and curettage with hysteroscopy and NovaSure endometrial ablation secondary to menorrhagia with regular cycle. Her menses are occurring every 28-30 days lasting at least 8 days with the first day and a half very heavy and at least 3 days of severe cramping. This has been worsening over the last 3-4 years and she is unable to take ibuprofen due to stomach issues. She did have a pelvic ultrasound that showed a uterus measuring 7.9 x 5.6 x 3.8 cm with an endometrial stripe thickness of 0.5 cm. Normal ovaries were noted. The patient has had a tubal ligation and would like definitive surgical treatment to control her bleeding issues. Operative Findings: Uterus is retroverted, sounded to 9 cm. Cervix is sounded to 2 cm. Upon hysteroscopy, a fairly uniform appearance was noted with both tubal ostia visualized. A moderate amount of endometrial curettings are obtained. No adnexal masses are palpated. Description of Procedure: The patient is taken to the operating room. She is placed in the dorsal lithotomy position after general anesthesia was given. She is prepped and draped in the normal sterile fashion. Bladder is drained with a catheter and then removed. Pelvic exam is performed under anesthesia. Uterus is found to be retroverted with no adnexal masses. She is placed in slight Trendelenburg position. A right angle retractor is used to visualize the cervix. The anterior lip of the cervix is grasped with a Allis clamp. Cervix is sounded to 2 cm. Uterus is sounded to 9.5 cm. Cervix is gently dilated with Rivera dilators until a hysteroscope could be passed. Hysteroscopy is performed using normal saline. The above noted findings are noted. Next a polyp forceps is introduced. A moderate amount of tissue was obtained. Next medium-sized size sharp curette was placed. A moderate amount of endometrial curettings were obtained. Next NovaSure array was inserted into the endometrial cavity. Length was set at 6.5 cm and width was determined to be 3.7 cm. Next cavity assessment was completed and passed on the first try. Next NovaSure array was fired at 132 W for 62 seconds. Next the array was removed, inspected and then discarded. Next the hysteroscope was reinserted. Uniform charring was noted. Pictures were taken. Hysteroscope was removed. Allis clamp was removed from the anterior lip of the cervix. No bleeding was noted. All other instruments removed from the vagina. Sponge counts were correct. Patient is taken to recovery room in stable condition.
[2021-12-04] MEDS: HYDROmorphone 0.5 MG/0.5 ML SYRINGE IVP PRN ×2 (08:16→08:22)
[2021-12-04 08:21] VITALS: TEMP 96.9
[2021-12-04 08:32] VITALS: RESP 18
[2021-12-04] MEDS ORDERED: LACTATED RINGERS 1,000 ML IV ONE (08:44)
[2021-12-04 09:29] VITALS: BP 120/76; PULSE 67
== END 2021-12-04 09:47 | disposition home or self-care (01) ==
LOC: OR 06:19
PROVIDERS: ATTEND Obstetrics & Gynecology
DX: N92.0 Excessive and frequent menstruation with regular cycle (principal); N94.6 Dysmenorrhea, unspecified; F41.9 Anxiety disorder, unspecified; K21.9 Gastro-esophageal reflux disease without esophagitis; Z87.891 Personal history of nicotine dependence
CPT/HCPCS: 58558; 81025; 88305; J2250; J1100; J2405; J2001; J3010; J1885; J2704; J1170

== ENCOUNTER → 2023-01-20 | Outpatient (CLI) | payer OTHER ==
--- NOTE | 2023-01-21 11:02 | MM ---
Reason for Exam: Screening (asymptomatic). Last mammogram was performed 1 year(s) and 3 month(s) ago. Patient History: Menarche at age 13. First Full-Term at age 22. Patient has history of breast feeding. Patient used Hormonal Contraceptives for 20 years. Last menstrual period: 01/17/2023 Risk Values: Rimma 5 year model risk: 0.5%. NCI Lifetime model risk: 9.9%. Prior Study Comparison: 10/27/2021 Bilateral Screening Mammogram, [facility]. 11/10/2021 Left Diagnostic Mammogram, [facility]. Tissue Density: The breast tissue is extremely dense which could obscure a lesion on mammography. Findings: Analyzed By CAD. There is no suspicious new group of microcalcifications or new suspicious mass in either breast. Overall Assessment: Negative, BI-RAD 1 Management: Screening Mammogram of both breasts in 1 year. A clinical breast exam by your physician is recommended on an annual basis and results should be correlated with mammographic findings. Electronically signed and approved by: Mega Cox M.D.
== END | disposition home or self-care (01) ==
LOC: RADMAMWWP 15:21
PROVIDERS: ATTEND Obstetrics & Gynecology
DX: Z12.31 Encounter for screening mammogram for malignant neoplasm of breast (principal)
CPT/HCPCS: 77067